=== PATIENT | female | born 1980 | race Caucasian/White ===

== ENCOUNTER 2018-10-26 05:30 | Inpatient (IN) | payer MEDICARE ==
[2018-10-26] MEDS ORDERED: SEVOFLURANE 250 ML LIQUID IH ONE (08:48)
[2018-10-26] MEDS ORDERED: HYDROmorphone HCL/PF 2 MG/ML VIAL ONE ×2 (08:48)
[2018-10-26] MEDS ORDERED: ePHEDrine SULFATE 50 MG/1 ML IVP ONE (08:48)
[2018-10-26] MEDS ORDERED: LACTATED RINGERS 1,000 ML IV.SOLN IV ONE ×2 (08:48)
[2018-10-26] MEDS ORDERED: fentaNYL CITRATE/PF 100 MCG/2 ML INJ. ONE (08:48)
[2018-10-26] MEDS ORDERED: ROCURONIUM BROMIDE 10 MG/ML 5ML VIAL ONE (08:48)
[2018-10-26] MEDS ORDERED: ceFAZolin SODIUM 1 GM VIAL ONE (08:48)
[2018-10-26] MEDS ORDERED: PHENYLEPHRINE HCL 10 MG/1 ML ONE (08:48)
[2018-10-26] MEDS ORDERED: MIDAZOLAM HCL 2 MG/2 ML VIAL ONE (08:48)
[2018-10-26] MEDS ORDERED: BACITRACIN 50,000 UNIT VIAL ONE (08:48)
[2018-10-26] MEDS ORDERED: DEXAMETHASONE SOD PHOS 4 MG/ML VIAL ONE (08:48)
[2018-10-26] MEDS ORDERED: PROPOFOL 200 MG/20 ML VIAL IV ONE (08:48)
[2018-10-26] MEDS ORDERED: LIDOCAINE HCL 2% PF 100MG/5ML VIAL IJ ONE (08:48)
[2018-10-26] MEDS ORDERED: THROMBIN (RECOMBINANT) 20,000 UNIT VIAL TP ONE (08:48)
[2018-10-26] MEDS ORDERED: SUGAMMADEX SODIUM 200 MG/2 ML VIAL IV ONE (08:48)
[2018-10-26] MEDS ORDERED: GELATIN SPONGE,ABSORB/PORCINE (SIZE 100) 1 EACH SPONGE TP ONE (08:48)
[2018-10-26] MEDS ORDERED: ONDANSETRON HCL/PF 4 MG/ 2ML VIAL ONE (08:48)
[2018-10-26] MEDS ORDERED: ACETAMINOPHEN 500 MG TABLET PO PRN (12:35)
[2018-10-26] MEDS ORDERED: ONDANSETRON HCL/PF 4 MG/ 2ML VIAL IVP PRN (12:35)
[2018-10-26] MEDS ORDERED: diphenhydrAMINE HCL 25 MG TABLET PO PRN (12:35)
[2018-10-26] MEDS ORDERED: LEVALBUTEROL HCL 1.25 MG/3 ML AMPUL.NEB NEB PRN (12:35)
[2018-10-26] MEDS ORDERED: oxyCODONE HCL 5 MG TABLET PO PRN (12:35)
[2018-10-26] MEDS ORDERED: fentaNYL CITRATE/PF 100 MCG/2 ML INJ. IVP PRN ×2 (12:35)
[2018-10-26] MEDS ORDERED: diphenhydrAMINE HCL 50 MG/ML VIAL IVP PRN (12:35)
[2018-10-26] MEDS ORDERED: oxyCODONE/ACETAMINOPHEN 5/325 TABLET PO PRN (12:35)
[2018-10-26] MEDS ORDERED: PROMETHAZINE HCL 25 MG in 0.9 % SODIUM CHLORIDE 50 ML IV PRN (12:35)
[2018-10-26] MEDS ORDERED: NICOTINE 14mg PATCH.TD24 TD SCH (13:00)
--- NOTE | 2018-10-26 13:26 | History and Physical Report ---
History of Present Illnes - History of Present Illness Reason for Visit: S/P Lumbar Spine TDR L5/S1 Bilateral History of Present Illness: Patient is a 38-year-old white female that has a chronic history of lower back pain in which she has underwent surgical procedures, chronic pain medication t reatment and lumbar injections but they have only lasted for a short time. Patient and surgeon decided that they would proceed with a lumbar spine total disc replacement of L5/S1 bilateral. Procedure went well with no complications. - Past Medical History Heme/Onc: Cancer (Pituitary Tumor Microprolactinoma) Psych: Anxiety, Depression Musculoskeletal: Chronic low back pain Endocrine: Hypothyroidism, obesity Grav: 2 Para: 2 - Past Surgical History Past Surgical History: Hernia Repair (Inguinal), Other (thyroidectomy), Other (Lamineotomy/Foramenotomy) - Past Family History Mother Family History: Other (COPD/Emphysema) Father Family History: - Past Social History Smoke: No Alcohol: Rare Drugs: None Lives: With Family Domestic Violence: Negative - Health Maintenance Health Maintenance: Pap Smear, Mammogram Influenza Vaccine: No (Order for flu vaccine in to give at discharge) Pneumonia Vaccine: No Resuscitation Status: Full code Review of Systems - Review of Systems Constitutional: negative: Fever, Chills Eyes: negative: pain, vision change ENT: negative: Ear Pain, Nose Pain, Throat Pain Respiratory: negative: Cough, Shortness of Breath Cardiovascular: negative: Chest Pain, Light Headedness Gastrointestinal: Abdominal Pain (s/p lumbar TDR (anterior route)). negative: Nausea, Vomiting Genitourinary: negative: Dysuria Musculoskeletal: Back Pain Skin: negative: Rash Neurological: Weakness - Medications/Allergies Allergies/Adverse Reactions: Allergies Allergy/AdvReac Type Severity Reaction Status Date / Time No Known Allergies Allergy Verified 10/26/18 12:30 Home Medications: Home Medications Bromocriptine Mesylate [Parlodel] 5 mg PO DAILY 10/26/18 Cyclobenzaprine HCl [Flexeril] 10 mg PO DAILY PRN 10/26/18 Hydrocodone/Acetaminophen [[place] 5-325 Tablet] 1 each PO QID 10/26/18 Levothyroxine Sodium [Synthroid] 112 mcg PO DAILY 10/26/18 Liothyronine Sodium 5 mcg PO DAILY 10/26/18 Sertraline HCl [Zoloft] 100 mg PO DAILY 10/26/18 Current Inpatient Medications: Current Inpatient Medications Acetaminophen (Tylenol Extra Strength) 500 mg PO Q4 PRN PRN Reason: for mild pain 1-4/fever Diazepam (Valium) 5 mg PO Q8H PRN PRN Reason: Anxiety/muscle spasm Diphenhydramine HCl (Benadryl) 25 mg PO Q4 PRN PRN Reason: Itching or Pruritis Diphenhydramine HCl (Benadryl) 25 mg IVP Q6H PRN PRN Reason: Sleeping and Itching Stop: 10/30/18 12:34 Heparin Sodium (Porcine) (Heparin) 5,000 unit SQ Q12 [facility] Hydromorphone HCl (Dilaudid) 4 mg PO Q4H PRN PRN Reason: Severe Pain 8-10 Stop: 10/27/18 12:34 Promethazine HCl 25 mg/ Sodium (Chloride) 51 mls @ 600 mls/hr IV Q6 PRN PRN Reason: Nausea / Vomiting Stop: 10/30/18 12:34 Potassium Chloride/Dextrose/Sod Cl (D51/[id number]) 1,000 mls @ 75 mls/hr IV Q10H [facility] Ketorolac Tromethamine (Toradol) 15 mg IVP Q6 PRN PRN Reason: For Mild Pain 1-4 Stop: 10/30/18 12:34 Levalbuterol HCl (Xopenex) 1.25 mg NEB Q4 PRN PRN Reason: SOA, Dyspnea, or Wheezing Stop: 10/30/18 12:34 Miscellaneous (Bromocriptine Mesylate [Parlodel]) 5 mg PO DAILY [facility] Miscellaneous (Levothyroxine Sodium [Synthroid]) 112 mcg PO DAILY [facility] Miscellaneous (Liothyronine Sodium [Liothyronine Sodium]) 5 mcg PO DAILY [facility] Ondansetron HCl (Zofran 4 Mg/2 Ml) 4 mg IVP Q6H PRN PRN Reason: Nausea / Vomiting Stop: 10/30/18 12:34 Oxycodone HCl (Percolone) 10 mg PO Q4 PRN PRN Reason: For Moderate Pain 5-7 Oxycodone/Acetaminophen (Percocet 5-325 Mg Tablet) 1 each PO Q4 PRN PRN Reason: For pain 1-4 out of 10 Sertraline HCl (Zoloft) 100 mg PO DAILY [facility] Exam - Exam Vital Signs: Vital Signs (72 hours) 10/26/18 12:30 Temperature 96.2 F L Pulse Rate [ 96 H Left] Respiratory 18 Rate Blood Pressure 103/58 [Left Arm] O2 Sat by Pulse 92 Oximetry General: Alert, Oriented to Person, Oriented to Place, Cooperative, No acute distress HEENT: Atraumatic, PERRLA, Mouth Mucous membr. moist/[place], Nose Mucous membr. moist/[place] Neck: Normal Range of Motion Lungs: Clear to auscultation, Normal air movement, Speaks full Sentences Cardiovascular: Regular rate, Normal S1, Normal S2 Peripheral Edema: NOne Peripheral Pulses: 2+ Abdomen: Normal bowel sounds Integumentary: Normal, [place], Warm, Dry, Other (incision dressing dry/intact) Extremities: Normal pulses, No tenderness/swelling Neurological: Normal speech, Strength Equal Bilat, Sensation intact, Reflexes 2+ Psych/Mental Status: Mental status NL, Mood NL, Appropriate Affect Assessment/Plan - Assessment/Plan (1) Status post lumbar surgery Status: Acute Current Visit: Yes Assessment: LCTA, HRRR, Abdomen soft, Dressing dry and intact, + bowel sounds- 2+ peripheral pulses, sensation intact, + neurovasculars intact Plan: Will have patient use Incentive spirometer frequently, ambulations, SCDs while in bed, will advance diet as tolerated, will continue with home meds (2) Anxiety and depression Status: Acute Current Visit: Yes Assessment: Stable on home medications Plan: Will continue home meds (3) Hypothyroidism Status: Acute Current Visit: Yes Assessment: Stable on home meds (had a thyroidectomy) Plan: Will continue with home meds (4) Pituitary tumor Status: Acute Current Visit: Yes Assessment: Stable on home med Plan: Will continue Cytotec VTE Assessment - RISK FACTOR SCORE VTE RISK FACTOR SCORES: OBESITY, MAJOR SURGERY/ANESTHESIA TIME > 1 HOUR (will administer heparin BID, ambulation, and SCDs while in bed)
[2018-10-26] MEDS: POTASSIUM CHLOR 20 MEQ D51/2NS 1,000 ML IV SCH (13:28)
[2018-10-26] MEDS: KETOROLAC TROMETHAMINE 30 MG/1ML VIAL IVP PRN ×2 (13:37→21:02)
[2018-10-26 14:23] VITALS: BMI 32.1
[2018-10-26] MEDS: oxyCODONE/ACETAMINOPHEN 5/325 TABLET PO PRN ×2 (14:43→19:16)
[2018-10-26] MEDS: DIAZEPAM 5 MG TABLET PO PRN (21:09)
[2018-10-26] MEDS: HEPARIN SODIUM 5000 UNIT/1 ML SQ SCH (21:17)
[2018-10-26] MEDS: HYDROmorphone HCL 2 MG TABLET PO PRN (23:48)
[2018-10-27] MEDS: POTASSIUM CHLOR 20 MEQ D51/2NS 1,000 ML IV SCH ×4 (01:32→23:59)
[2018-10-27] MEDS: KETOROLAC TROMETHAMINE 30 MG/1ML VIAL IVP PRN ×2 (06:20→20:58)
[2018-10-27 06:49] LABS: BASOPHILS % 0.4 (0.0-1.5); EOSINOPHILS % 0.8 % (0.0-6.8); MEAN CORPUSCULAR HEMOGLOBIN 26.3 pg (28.0-34.0); MONOCYTES % 5.9 % (0.0-11.0); NEUTROPHILS # 9.3 # k/uL (1.4-7.7)
--- NOTE | 2018-10-27 07:11 | Inpatient Progress Note ---
Subjective - Required Recertification Statement I anticipate X number of days because-include discharge plan: 1 - Review of Systems Events since last encounter: According to staff patient has been up walking in the hallway and has been requesting the Dilaudid stating that it works better than anything. Patient has not been in any acute distress- has been eating fast food and walking. No guarding or grimacing. Has been using an Ice Pack to abdominal incision that crosses over to the left hip where she is c/o "left hip skin" numbness. Repositioned Ice pack off the hip- she has 2+ femoral and pedal pulses- sensation intact to lower extremities- strong pushes and pulls. Patient is requesting a stool softener- she does not feel constipated yet but feels that it may be starting- will start colace and Miralax. Labs are WNL this morning. General: Appetite (very good- lots of fast food). Denies: Chills, Night Sweats HEENT: Denies: Visual Changes, Sore Throat Pulmonary: Denies: Dyspnea, Cough Cardiovascular: Denies: Chest Pain, Edema Gastrointestinal: Abdominal Pain (incisional site), Constipation (will start colace and miralax). Denies: Nausea, Vomiting Genitourinary: Denies: Dysuria Musculoskeletal: Back Pain Neurological: Numbness (Left hip (skin)) Objective - Exam Vitals and I&O: Vital Signs Temp 97.1 F L 10/27/18 06:00 Pulse 95 H 10/27/18 06:39 Resp 14 10/27/18 06:00 BP 88/58 10/27/18 06:00 Pulse Ox 97 10/27/18 06:39 Intake & Output 10/26/18 10/26/18 10/27/18 11:59 23:59 11:59 Intake Total 770 1215 Output Total 350 2150 Balance 420 -935 Weight 90.265 kg Intake: IV 450 825 Left Hand 450 825 Oral 320 390 Output: Urine 350 2150 Other: Voiding Method Toilet Toilet # Voids 1 2 General: Alert, Oriented to Person, Oriented to Place, Oriented to Time, Cooperative, No acute distress (eating [employer] breakfast) HEENT: Atraumatic, PERRLA, Mouth Mucous membr. moist/[place], Nose Mucous membr. moist/[place] Neck: Supple, +2 carotid pulse wo bruit Lungs: Clear to auscultation, Normal air movement, Speaks full Sentences Cardiovascular: Regular rate, Normal S1, Normal S2 Abdomen: Normal bowel sounds, Soft Extremities: No edema, Normal pulses, No tenderness/swelling Skin: Normal, [place], Warm, Dry Neurological: Normal gait, Normal speech, Strength Equal Bilat, Normal tone, Sensation intact, Cranial nerves 3-12 NL Psych/Mental Status: Mental status NL, Mood NL, Appropriate Affect, Intact Judgment - Results Results: Laboratory Results WBC 12.70 K/ul (4.00-12.00) H 10/27/18 05:45 RBC 4.73 M/ul (3.90-5.20) 10/27/18 05:45 Hgb 12.5 g/dL (12.0-16.0) 10/27/18 05:45 Hct 38.8 % (34.5-46.5) 10/27/18 05:45 MCV 82.0 fl (80.0-100.0) 10/27/18 05:45 MCH 26.3 pg (28.0-34.0) L 10/27/18 05:45 MCHC 32.2 g/dL (30.0-36.0) 10/27/18 05:45 RDW 13.5 % (11.3-14.3) 10/27/18 05:45 Plt Count 230 K/mm3 (130-400) 10/27/18 05:45 Neut % (Auto) 73.6 % (39.0-79.0) 10/27/18 05:45 Lymph % (Auto) 19.3 % (16.0-50.0) 10/27/18 05:45 [place] % (Auto) 5.9 % (0.0-11.0) 10/27/18 05:45 Eos % (Auto) 0.8 % (0.0-6.8) 10/27/18 05:45 Baso % (Auto) 0.4 (0.0-1.5) 10/27/18 05:45 Neut # (Auto) 9.3 # k/uL (1.4-7.7) H 10/27/18 05:45 Lymph # (Auto) 2.4 # k/uL (0.6-4.0) 10/27/18 05:45 [place] # (Auto) 0.8 # k/uL (0.0-0.9) 10/27/18 05:45 Eos # (Auto) 0.1 # k/uL (0.0-0.6) 10/27/18 05:45 Baso # (Auto) 0.1 # k/uL (0.0-0.5) 10/27/18 05:45 Assessment/Plan - Assessment/Plan (1) Status post lumbar surgery Status: Acute Assessment: LCTA, HRRR, Abdomen soft, Dressing dry and intact, + bowel sounds- 2+ peripheral pulses, sensation intact, + neurovasculars intact Plan: Will have patient use Incentive spirometer frequently, ambulations, SCDs while in bed, will advance diet as tolerated, will continue with home meds, will decrease pain medication- blood pressures a little low- developing slow bowel (2) Anxiety and depression Status: Acute Assessment: Stable on home meds Plan: continuing on home meds (3) Hypothyroidism Status: Acute Assessment: stable on home meds Plan: Continue on home medications (4) Pituitary tumor Status: Acute Assessment: Stable on home meds Plan: Continuing home medication
[2018-10-27 07:16] LABS: eGFR (Non-African) > 60
[2018-10-27] MEDS: DOCUSATE SODIUM 100 MG CAPSULE PO SCH (10:00)
[2018-10-27] MEDS: HEPARIN SODIUM 5000 UNIT/1 ML SQ SCH ×2 (10:00→20:57)
[2018-10-27] MEDS: SERTRALINE HCL 50 MG TABLET PO SCH (10:00)
[2018-10-27] MEDS: LEVOTHYROXINE SODIUM 112 MCG PO SCH (10:01)
[2018-10-27] MEDS: LIOTHYRONINE SODIUM 5 MCG PO SCH (10:01)
[2018-10-27] MEDS: BROMOCRIPTINE MESYLATE 5 MG PO SCH (10:07)
[2018-10-27] MEDS: HYDROmorphone HCL 2 MG TABLET PO PRN (10:51)
[2018-10-27] MEDS ORDERED: POLYETHYLENE GLYCOL 3350 17 GM POWD.PACK PO SCH (11:00)
[2018-10-27] MEDS: oxyCODONE/ACETAMINOPHEN 5/325 TABLET PO PRN ×2 (18:03→23:57)
[2018-10-27] MEDS: DIAZEPAM 5 MG TABLET PO PRN (21:00)
[2018-10-28] MEDS: oxyCODONE/ACETAMINOPHEN 5/325 TABLET PO PRN ×2 (05:02→09:02)
--- NOTE | 2018-10-28 08:57 | Discharge Summary ---
Discharge Summary - Discharge Sumary History of Present Illness: Patient is a 38-year-old white female that has a chronic history of lower back pain in which she has underwent surgical procedures, chronic pain medication treatment and lumbar injections but they have only lasted for a short time. Patient and surgeon decided that they would proceed with a lumbar spine total disc replacement of L5/S1 bilateral. Procedure went well with no complications. Condition at Discharge: Stable Home Medications: Ambulatory Orders Medication Instructions Recorded Bromocriptine Mesylate [Parlodel] 5 mg PO DAILY 10/26/18 Cyclobenzaprine HCl [Flexeril] 10 mg PO DAILY PRN 10/26/18 Hydrocodone/Acetaminophen [[place] 1 each PO QID 10/26/18 5-325 Tablet] Levothyroxine Sodium [Synthroid] 112 mcg PO DAILY 10/26/18 Liothyronine Sodium 5 mcg PO DAILY 10/26/18 Sertraline HCl [Zoloft] 100 mg PO DAILY 10/26/18 Oxycodone HCl/Acetaminophen 1 - 2 each PO Q4-6 PRN #56 tablet 10/27/18 [Percocet 7.5/325] Consultations this Visit: None Procedures this Visit: Other (S/p Lumbar disc replacement) Allergies/Adverse Reactions: Allergies Allergy/AdvReac Type Severity Reaction Status Date / Time No Known Allergies Allergy Verified 10/26/18 12:30 Discharge Summary: Patient is a 38-year-old female who has done well s/p lumbar total disc replacement- she has been up ambulating in the hallway, using incentive spirometer, and tolerating medications as directed and diet without nausea or vomiting. Patient educated on discharge instructions- discussed activity, medications, incision monitoring for infection- pt voices understanding- explained importance of keeping follow up appointment. - Final Diagnosis (1) Status post lumbar surgery Problems: incision dressing dry & intact- neurovasculars intact- + sensation, pulses, and equal strength. She has been up ambulating without difficulty Right or Left: Right (2) Anxiety and depression Problems: Stable on home medications Right or Left: Right (3) Hypothyroidism Problems: stable on home meds Right or Left: Right (4) Pituitary tumor Problems: Explained importance of taking medication and not skipping doses Right or Left: Right
[2018-10-28 09:35] VITALS: BP 99/53
[2018-10-28] MEDS: HEPARIN SODIUM 5000 UNIT/1 ML SQ SCH (09:51)
[2018-10-28] MEDS: LEVOTHYROXINE SODIUM 112 MCG PO SCH (09:51)
[2018-10-28] MEDS: BROMOCRIPTINE MESYLATE 5 MG PO SCH (09:51)
[2018-10-28] MEDS: DOCUSATE SODIUM 100 MG CAPSULE PO SCH (09:51)
[2018-10-28] MEDS: SERTRALINE HCL 50 MG TABLET PO SCH (09:52)
[2018-10-28] MEDS: LIOTHYRONINE SODIUM 5 MCG PO SCH (09:52)
== END 2018-10-28 10:15 | disposition home or self-care (01) | DRG 518 ==
LOC: OPSURG 05:30 → SOUTH 12:28
PROVIDERS: ADMIT Nurse Practitioner Family; ATTEND Nurse Practitioner Family
DX: M51.37 Other intervertebral disc degeneration, lumbosacral region (principal); M51.27 Other intervertebral disc displacement, lumbosacral region
CPT/HCPCS: 22857; 36415; 80048; 81025; 85025; 86885; 86900; 86920; 99231; 99232; 99238; J0690; J1100; J1170; J1644; J1885; J2001; J2250; J2307; J2405; J2704; J3010; A9270-GY; J2370; J3480; J3490; J7070; J7120; Q0163

== ENCOUNTER 2019-07-14 08:21 | Day surgery (SDC) | payer MEDICARE ==
[2019-07-14] MEDS ORDERED: KETOROLAC TROMETHAMINE 30 MG/1ML VIAL ONE (08:48)
[2019-07-14] MEDS ORDERED: fentaNYL CITRATE/PF 100 MCG/2 ML INJ. ONE (08:48)
[2019-07-14] MEDS ORDERED: PROPOFOL 200 MG/20 ML VIAL IV ONE (08:48)
[2019-07-14] MEDS ORDERED: ONDANSETRON HCL/PF 4 MG/ 2ML VIAL ONE (08:48)
[2019-07-14] MEDS ORDERED: MIDAZOLAM HCL 2 MG/2 ML VIAL ONE (08:48)
[2019-07-14] MEDS ORDERED: ceFAZolin SODIUM 1 GM VIAL ONE (08:48)
[2019-07-14] MEDS ORDERED: LIDOCAINE HCL 2% PF 100MG/5ML VIAL IJ ONE (08:48)
[2019-07-14] MEDS ORDERED: LACTATED RINGERS 1,000 ML IV.SOLN IV ONE (08:48)
--- NOTE | 2019-07-23 07:33 | Operative Note ---
PROCEDURE DATE: 07/14/2019 PREOPERATIVE DIAGNOSIS: Right carpal tunnel syndrome. POSTOPERATIVE DIAGNOSIS: Right carpal tunnel syndrome. PROCEDURES PERFORMED: Right carpal tunnel release, mini open. SURGEON: Daryn Carrera M.D. ANESTHESIA: Local 1% plain xylocaine with 1% plain Marcaine, 4 mL each, subcuticularly with monitored anesthesia control. FLUIDS RECEIVED: Recorded as per Anesthesia Record. ESTIMATED BLOOD LOSS: 0 mL. COMPLICATIONS: None. DESCRIPTION OF PROCEDURE: The patient was given monitored anesthesia per anesthesia department personnel. The patient thereafter underwent sterile prep and drape, right upper extremity, site verification completed, informed consent process having been completed prior to bringing the patient into the operating room. The extremity was injected using the above-noted solution with a small- gauge needle, providing local anesthesia along the palmar aspect of the base of the hand in line with the fourth ray, in the longitudinal mid palmar crease, proximally, just distal to the distal wrist crease. The incision was then made, having insufflated the tourniquet after exsanguination of the extremity to a pressure of 250 mmHg. The approximate 2-cm incision was carried through the skin and subcutaneous tissue. The underlying transverse carpal ligament was identified. This was then transected initially with a Bard Baltazar #15 knife blade, after which I used small curved Metzenbaum scissors to extend the release of the transverse carpal ligament from the vascular arch distally to the forearm fascia proximally. Good visualization of carpal canal contents was achieved with release of median nerve compression. Closure was thereafter obtained using 4-0 Monocryl in a running subcuticular stitch pattern. Steri-Strips were applied, Mastisol along the margins of the skin. A sterile soft dressing was thereafter placed, tourniquet released. Good capillary refill is noted distally, right upper extremity. The patient was thereafter transferred onto the recovery room stretcher and taken from the operating room in satisfactory condition. She experienced no complications to surgery or to the anesthesia. Daryn Carrera M.D. CARI/jesus alberto (Please copy SA provider when applicable) Job #[id number] DEANGELO
== END 2019-07-14 12:52 | disposition home or self-care (01) ==
LOC: OPSURG 08:21
PROVIDERS: ATTEND Orthopaedic Surgery
DX: G56.01 Carpal tunnel syndrome, right upper limb (principal)
CPT/HCPCS: 64721; J0690; J1885; J2001; J2250; J2405; J2704; J3010; J7120

== ENCOUNTER 2019-09-07 09:17 | Day surgery (SDC) | payer MEDICARE ==
[~2019-09-07 09:17] MED LIST: BUPIVACAINE HCL IJ ONE; LACTATED RINGERS 1,000 ML IV.SOLN IV ONE; LIDOCAINE HCL 1% PF 300MG/30ML VIAL ONE; LIDOCAINE HCL 2% PF 100MG/5ML VIAL IJ ONE; MIDAZOLAM HCL 2 MG/2 ML VIAL ONE; MORPHINE SULFATE 10 MG/ML VIAL ONE; PROPOFOL 200 MG/20 ML VIAL IV ONE; fentaNYL CITRATE/PF 100 MCG/2 ML INJ. ONE; methylPREDNISolone ACETATE 40 MG/ML VIAL IM ONE
[2019-09-07] MEDS ORDERED: HYDROcodone /APAP 5/325 1 EACH TABLET ONE (13:04)
== END 2019-09-07 13:45 | disposition home or self-care (01) ==
LOC: OPSURG 09:17
PROVIDERS: ATTEND Physical Medicine & Rehabilitation Pain Medicine
DX: M47.812 Spondylosis without myelopathy or radiculopathy, cervical region (principal)
CPT/HCPCS: 64490; A9270; J1030; J2001; J2250; J2270; J2704; J3010; J7120